=== PATIENT | male | born 1945 | race Caucasian/White ===

== ENCOUNTER → 2019-10-14 09:08 | Outpatient (CLI) | payer MEDICARE, OTHER, SELFPAY ==
[2019-10-14 23:37] LABS: COVID19 Sendout Not Detected (Not Detect)
== END ==
PROVIDERS: Family Provider Family Medicine; PCP Family Medicine; Visit Provider Physician Assistant
DX: Z01.812 Encounter for preprocedural laboratory examination (principal)
CPT/HCPCS: 87635

== ENCOUNTER 2019-10-17 11:42 | Outpatient (CLI) | payer MEDICARE, OTHER, SELFPAY ==
[2019-10-17] VITALS (9 sets, daily range): BP systolic 107–179; BP diastolic 66–84; PULSE 52–490; RESP 1–16; TEMP 36.7; O2SAT 9–100
--- NOTE | 2019-10-17 11:43 | DI.RAD.S_ITS ---
PROCEDURE: PAIN L/S TRANSFORAMINAL INJECT INDICATIONS: SPONDYLOSIS FINDINGS: Fluoroscopic spot filming was performed to verify placement of spinal needles at the left L1 to neural foramen level(s), as labeled on the films. Appropriate location(s) of the needle tip(s) was confirmed by injection of iodinated contrast. IMPRESSION: Successful needle tip localization adjacent to the left L1-L2 neural foramen for transforaminal epidural steroid injection. Dictated by: Slade Fry M.D. on 10/17/2019 at 16:20 Approved by: Slade Fry M.D. on 10/17/2019 at 16:21
[2019-10-17] MEDS: MIDAZOLAM 5 MG/5 ML VIAL IV (13:18)
[2019-10-17] MEDS: IOPAMIDOL 15 ML VIAL 3 ML INJ (13:22)
[2019-10-17] MEDS: BETAMETHASONE 30 MG/5 ML MDV 6 MG INJ (13:22)
[2019-10-17] MEDS: BUPIVACAINE 0.25% (PF) VIAL 2 ML INJ (13:22)
[2019-10-17] MEDS: DEXAMETHASONE 10 MG/ML VIAL 20 MG INJ (13:22)
[2019-10-17] MEDS: fentaNYL 100 MCG/2 ML INJ 50 MCG IV (13:24)
--- NOTE | 2019-10-17 13:41 | P.PCN_ITS ---
Date/Time/Diagnoses Date of procedure: 10/17/19 Time of procedure: 13:41 Pre-procedure diagnosis: 1. FORAMINAL STENOSIS WITH LE SYMPTOMS Post-procedure diagnosis: same Procedure Notes Procedure: 1. FLUOROSCOPICALLY GUIDED CONTRAST CONTROLLED TRANSFORAMINAL EPIDURAL STEROID INJECTION - LEFT L1/2 TFESI Indications: Harris is referred by for treatment of Foraminal Stenosis with left LE Symptoms Physician: Sony Spears Total Fluoroscopy time (seconds): 7 Total sedation minutes: 24 Complications: none Procedure in detail & Post-procedure care: FINDINGS Foraminal Nerve Root Compression secondary to disc disease and facet hypertrophy DESCRIPTION OF PROCEDURE Following review of allergy and review of potential side effects and complications, including, but not necessarily limited to, infection, allergic reaction, local tissue breakdown, stroke, temporary or permanent nerve injury, paralysis, and possible , the patient indicated that the patient understood and agreed to proceed. An informed consent document was signed by the patient, witnessed by a nurse, and placed in the patient's chart. Additionally, other treatment options including medications, modalities, and physical therapy were reviewed with the patient. After review of previous anaesthesic history and IV conscious sedation the patient was deemed safe to proceed with today?s procedure with IV conscious sedation as ASA class II designation. Safety time-out was performed to confirm patient ID, procedure to be performed and site of procedure. IV sedation was accomplished with a combination of 2mg of Versed and 50mcg of Fentanyl was administered by the RN after DO order, titrated to patient comfort during the course of the procedure while the patient remained responsive to all verbal comm ands In the prone position following sterile prep and drape of the lumbar region, the left L1/2 posterior neuroforamen was identified fluoroscopically. The skin was anesthetized via a 25-gauge 1.5-inch needle with 1% lidocaine solution. At this point, a 25-gauge 3.5-inch spinal needle was atraumatically introduced and advanced under fluoroscopic guidance through the posterior left L1/2 neurofor amen to approximately the anterior aspect of the canal. Depth was confirmed on lateral view. Following negative aspiration, injection of approximately 1.5cc of Isovue 200 under live fluoroscopy in the AP view confirmed excellent flow along the nerve root, into the epidural space without vascular or intrathecal uptake observed Radiological data, including multiple fluoroscopic views of the lumbosacral spine, reveal a spinal needle at the left L1/2 posterior neuroforamen. Subsequent views show flow of contrast material flowing superiorly and inferiorly along the nerve root confirming epidural flow. Subsequently, a test dose of 1.5cc of 1% lidocaine solution was administered and patient was observed for two minutes for signs or symptoms of complications, including abdominal pain, shortness of breath, bilateral upper or lower extremity weakness, nausea and vomiting, prior to steroid injection. At this point, a total of 2cc or 20mg of dexamethasone and 6mg of betamethasone was inj ected without incident. The patient tolerated the procedure well without signs or symptoms of complications prior to transfer to the recovery area continued monitoring without incident. The patient was then transferred to the recovery area where they were observed for an appropriate time after the injection. The patient reported a VAS score of 7 prior to the procedure and a post-procedure VAS of 0. POST OP INSTRUCTIONS The patient was provided a Pain Log to continue to record their response to the target-specific procedure prior to follow-up visit with their referring physician. Additionally, specific post-injection care instructions and a contact number to our office were provided if concerns arise regarding possible complications associated with the procedure are suspected.
--- NOTE | 2019-10-17 14:12 | PC.NURSE ---
1347:Pt returned to pre proc room, 1PA from wc to chair due to numbing medication administered during procedure, resumed monitoring by this RN
--- NOTE | 2019-10-17 16:17 | PC.NURSE ---
Pt tolerated procedure well. Versed and Fentanyl given my RN Rosa Maria, all other meds administered by Dr. Spears. VSS upon transfer to [facility] Hurtado in post procedure room.
== END 2019-10-17 14:51 | disposition home or self-care (01) ==
LOC: RAD 11:43
PROVIDERS: Family Provider Family Medicine; PCP Family Medicine; Referring Provider Family Medicine; Visit Provider Physical Medicine & Rehabilitation
DX: M48.061 Spinal stenosis, lumbar region without neurogenic claudication (principal); M51.16 Intervertebral disc disorders with radiculopathy, lumbar region
CPT/HCPCS: 64483; 99152; J0702; J1100; J2250; J3010

== ENCOUNTER → 2019-12-14 15:43 | Outpatient (CLI) | payer MEDICARE, OTHER, SELFPAY ==
[2019-12-17 15:47] LABS: COVID19 Sendout Not Detected (Not Detect)
== END ==
PROVIDERS: Family Provider Family Medicine; PCP Family Medicine; Visit Provider Physician Assistant
DX: Z11.59 Encounter for screening for other viral diseases (principal)
CPT/HCPCS: 87635

== ENCOUNTER 2019-12-17 12:30 | Outpatient (CLI) | payer MEDICARE, OTHER, SELFPAY ==
[2019-12-17] VITALS (8 sets, daily range): BP systolic 140–211; BP diastolic 75–89; PULSE 58–64; RESP 12–27; TEMP 36.6; O2SAT 97–100
--- NOTE | 2019-12-17 12:33 | DI.RAD.S_ITS ---
PROCEDURE: PAIN L/SI FACET INJ/BLK 1STL INDICATIONS: SPONDYLOSIS COMPARISON: None. FINDINGS: Fluoroscopic spot filming was performed to verify placement of spinal needles at the L1-L2, L2-L3, L3-L4 level(s), as labeled on the films. Appropriate location(s) of the needle tip(s) was confirmed by injection of iodinated contrast. Dictated by: Todd Moreno M.D. on 12/17/2019 at 16:33 Approved by: Todd Moreno M.D. on 12/17/2019 at 16:33
[2019-12-17 14:39] LABS: COVID19 -Nasal RAPID Negative (Negative)
[2019-12-17] MEDS: MIDAZOLAM 5 MG/5 ML VIAL IV (15:00)
[2019-12-17] MEDS: fentaNYL 100 MCG/2 ML INJ 50 MCG IV (15:00)
[2019-12-17] MEDS: BETAMETHASONE 30 MG/5 ML MDV 12 MG INJ (15:00)
[2019-12-17] MEDS: BUPIVACAINE 0.5% (PF) VIAL 5 ML INJ (15:05)
[2019-12-17] MEDS: IOPAMIDOL 15 ML VIAL 3 ML INJ (15:08)
--- NOTE | 2019-12-17 15:15 | P.PCN_ITS ---
Date/Time/Diagnoses Date of procedure: 12/17/19 Time of procedure: 15:15 Pre-procedure diagnosis: 1. FACET ARTHROPATHY, 2. AXIAL LBP, 3. MULTILEVEL DDD, Post-procedure diagnosis: same Procedure Notes Procedure: 1. FLUOROSCOPICALLY GUIDED CONTRAST CONTROLLED FACET JOINT INJECTIONS LEFT L2/3, L3/4 Indications: Harris is referred by is referred for treatment of Axial LBP Physician: Sony Spears Total Fluoroscopy time (seconds): 6 Total sedation minutes: 10 Complications: none Procedure in detail & Post-procedure care: FINDINGS Multilevel Facet Arthropathy with Clinically significant axial LBP DESCRIPTION OF PROCEDURE Fluoroscopically guided, contrast-controlled left L1/2, L2/3, L3/4 facet joint injections. Following review of allergy and review of potential side effects and complications, including, but not necessarily limited to, infection, allergic reaction, local tissue breakdown, stroke, temporary or permanent nerve injury, paralysis, and possible , the patient indicated that the patient understood and agreed to proceed. An informed consent document was signed by the patient, witnessed by a nurse, and placed in the patient's chart. Additionally, other treatment options including medications, modalities, and physical therapy were reviewed with the patient. After review of previous anaesthesic history and IV conscious sedation the pa tient was deemed safe to proceed with today?s procedure with IV conscious sedation as ASA class II designation. Safety time-out was performed to confirm patient ID, procedure to be performed and site of procedure. IV sedation was accomplished with a combination of 2mg of Versed and 50mcg of Fentanyl administered by the RN after DO order, titrated to patient comfort during the course of the procedure while the patient remained responsive to all verbal commands In the prone position, following sterile prep and drape of the lumbar region, the posterior aspect of the left L2/3, L3/4 facet joints were identified fluoroscopically. The skin was anesthetized via a 25-gauge 1.5-inch needle with 1% lidocaine solution into the corresponding facet joints. At this point, a 22- gauge 3.5-inch spinal needle was atraumatically introduced and advanced under fluoroscopic guidance into the corresponding facet joints. Following negative aspiration, injections of approximately 0.2-cc of Isovue 200 confirmed interarticular placement without vascular uptake. Radiological data, including multiple fluoroscopic views of the lumbosacral spine, reveal a spinal needle at the left L2/3, L3/4 facet joints. Subsequent views show flow of contrast material both superiorly and inferiorly within the joint space without vascular or intrathecal uptake. At this point, a total of 0.5 cc including a mixture of 0.25cc Marcaine and 0.25cc betamethasone was injected without complication into each of the corresponding facet joints. The patient tolerated the procedure well without signs or symptoms of compl ications prior to transfer to the recovery area continued monitoring without incident. The patient was then transferred to the recovery area where they were observed for an appropriate period of time after the injection. The patient reported a VAS score of 7 prior to the procedure and a post-procedure VAS of 0. POST OP INSTRUCTIONS The patient was provided a Pain Log to continue to record their response to the target-specific procedure prior to follow-up visit with their referring physician. Additionally, specific post-injection care instructions and a contact number to our office were provided if concerns arise regarding possible complications associated with the procedure are suspected.
== END 2019-12-17 15:59 | disposition home or self-care (01) ==
PROVIDERS: Family Provider Family Medicine; PCP Family Medicine; Referring Provider Physical Medicine & Rehabilitation; Visit Provider Physical Medicine & Rehabilitation
DX: M47.816 Spondylosis without myelopathy or radiculopathy, lumbar region (principal); M54.5 Low back pain; M51.36 Other intervertebral disc degeneration, lumbar region; Z11.59 Encounter for screening for other viral diseases
CPT/HCPCS: 64493; 64494; 64495; 87635; 99152; J0702; J2250; J3010

== ENCOUNTER → 2020-01-18 14:46 | Outpatient (CLI) | payer MEDICARE, OTHER, SELFPAY ==
[2020-01-20 07:53] LABS: COVID19 Sendout Not Detected (Not Detect)
== END ==
PROVIDERS: Family Provider Family Medicine; PCP Family Medicine; Visit Provider Physician Assistant
DX: Z01.812 Encounter for preprocedural laboratory examination (principal)
CPT/HCPCS: 87635

== ENCOUNTER 2020-01-21 11:40 | Outpatient (CLI) | payer MEDICARE, OTHER, SELFPAY ==
[2020-01-21] VITALS (8 sets, daily range): BP systolic 133–176; BP diastolic 67–81; PULSE 52–59; RESP 15–19; O2SAT 95–98
--- NOTE | 2020-01-21 11:41 | DI.RAD.S_ITS ---
PROCEDURE: PAIN L/SI FACET INJ/BLK 1STL INDICATIONS: SPONDYLOSIS COMPARISON: [facility], , PAIN L/SI FACET INJ/BLK 1STL, 12/17/2019, 15:05. FINDINGS: Fluoroscopic spot filming was performed to verify placement of spinal needles at the left L1, L2, L3, L4 level(s). Appropriate location(s) of the needle tip(s) was confirmed by injection of iodinated contrast. IMPRESSION: Intraoperative fluoroscopic guidance. Dictated by: David Santillan M.D. on 01/21/2020 at 17:36 Approved by: David Santillan M.D. on 01/21/2020 at 17:37
[2020-01-21] MEDS: MIDAZOLAM 5 MG/5 ML VIAL IV (13:20)
[2020-01-21] MEDS: fentaNYL 100 MCG/2 ML INJ 50 MCG IV (13:20)
[2020-01-21] MEDS: IOPAMIDOL 15 ML VIAL 3 ML INJ (13:22)
[2020-01-21] MEDS: LIDOCAINE 1% 20 ML 10 ML INJ (13:22)
[2020-01-21] MEDS: BUPIVACAINE 0.5% (PF) VIAL 5 ML INJ (13:22)
--- NOTE | 2020-01-21 13:37 | PM.PROC.IR.1 ---
Date/Time/Diagnoses Date of procedure: 01/21/20 Time of procedure: 13:37 Pre-procedure diagnosis: 1. FACET ARTHROPATHY Post-procedure diagnosis: same Procedure Notes Procedure: 1. Left L1, L2, L3 and L4 MB BLOCKS Indications: Harris is referred by Dr. Thomas for treatment of Left Axial LBP. Physician: Sony Spears Total Fluoroscopy time (seconds): 8 Total sedation minutes: 9 Complications: none Procedure in detail & Post-procedure care: DESCRIPTION OF PROCEDURE Fluoroscopically guided, contrast-controlled left L1, L2, L3 and L4 medial branch blocks with 0.5cc of 0.5% Marcaine. Following review of allergy and review of potential side effects and complications, including, but not necessarily limited to, infection, allergic reaction, local tissue breakdown, nerve injury, paralysis, stroke and possible , the patient indicated that the patient understood and agreed to proceed. An informed consent document was signed by the patient, witnessed by a nurse, and placed in the patient's chart. After review of previous anaesthesic history and IV conscious sedation the patient was deemed safe to proceed with today?s procedure with IV conscious sedation as ASA class II designation. Safety time-out was performed to confirm patient ID, procedure to be performed and site of procedure. IV sedation was accomplished with a combination of 2mg of Versed and 50mcg of Fentanyl was administered by the RN after DO order, titrated to patient comfort during the course of the procedure while the patient remained responsive to all verbal commands In the prone position, following sterile prep and drape of the lumbar region, the left L1, L2, L3 and L4 anatomical location of the medial branch of the dorsal ramus was identified fluoroscopically. Subsequently an anesthetic skin wheal using 1% lidocaine solution was initiated at each of the anatomical spots. Subsequently then a 22-gauge 3.5-inch spinal needle was atraumatically introduced and advanced under fluoroscopic guidance at each of the corresponding sites at the left L1, L2, L3 and L4 MB. After negative aspiration, 0.2cc of Isovue 200 was injected, confirming placement without vascular or intrathecal uptake. Subsequently then 0.5cc of 0.5% Marcaine solution was injected at each of the corresponding sites at the left L2, L3 and L4 medial branch locations. The patient tolerated the procedure well without signs or symptoms of complications. The procedure tolerated the procedure well without signs or symptoms of complications prior to transfer to the recovery area continued monitoring without incident. Post-procedure, the patient was monitored initiating provocative activities to measure the amount of relief from block of the facetogenic pain. The patient reported a VAS of 6 prior to the procedure and a post-procedure VAS of 1. It has been a pleasure to assist in the diagnostic and therapeutic care of your patient. POST OP INSTRUCTIONS The patient was provided with a Pain Log to complete over the next several hours and subsequent days prior to the patient's follow up with the ordering physician. If the patient has house carpenter relief to the solution applied, then they may be a candidate for medial branch rhizotomy. The patient is aware, was provided, once again, with a Pain Log and will follow up with the referring physician for review and clinical correlation.
== END 2020-01-21 14:00 | disposition home or self-care (01) ==
PROVIDERS: Family Provider Family Medicine; PCP Family Medicine; Referring Provider Family Medicine; Visit Provider Physical Medicine & Rehabilitation
DX: M47.816 Spondylosis without myelopathy or radiculopathy, lumbar region (principal)
CPT/HCPCS: 64493; 64494; 64495; J2250; J3010

== ENCOUNTER 2020-03-12 09:03 | Outpatient (CLI) | payer MEDICARE, OTHER, SELFPAY ==
[2020-03-12] VITALS (11 sets, daily range): BP systolic 143–202; BP diastolic 72–95; PULSE 53–60; RESP 11–23; TEMP 36.2; O2SAT 98–100
--- NOTE | 2020-03-12 09:05 | DI.RAD.S_ITS ---
PROCEDURE: PAIN L/S MED/LAT N RFA BILAT INDICATIONS: SPONDYLOSIS COMPARISON: [facility], XA, PAIN L/SI FACET INJ/BLK 1STL, 01/21/2020, 13:22. FINDINGS: Fluoroscopic spot filming was performed to verify placement of spinal needles on the left at the L1, L2, L3, and L4 level(s), as labeled on the films. IMPRESSION: Intraprocedural examination within normal limits. Dictated by: Bernardo Parkinson M.D. on 03/12/2020 at 11:05 Approved by: Bernardo Parkinson M.D. on 03/12/2020 at 11:05
[2020-03-12] MEDS: fentaNYL 100 MCG/2 ML INJ 50 MCG IV (10:51)
[2020-03-12] MEDS: MIDAZOLAM 5 MG/5 ML VIAL IV (10:54)
[2020-03-12] MEDS: BUPIVACAINE 0.5% (PF) VIAL 5 ML INJ (10:58)
[2020-03-12] MEDS: LIDOCAINE 1% 20 ML INJ (10:58)
--- NOTE | 2020-03-12 11:25 | P.PCN_ITS ---
Date/Time/Diagnoses Date of procedure: 03/12/20 Time of procedure: 11:25 Pre-procedure diagnosis: 1. RECALCITRANT FACET ARTHROPATHY Post-procedure diagnosis: same Procedure Notes Procedure: 1. LEFT L1, L2, L3 AND L4 MEDIAL BRANCH RADIOFREQUENCY NEUROTOMY Indications: Harris is referred by Dr. Thomas for treatment of facet arthropathy. Physician: Sony Spears Total Fluoroscopy time (seconds): 15 Total sedation minutes: 33 Complications: none Procedure in detail & Post-procedure care: DESCRIPTION OF PROCEDURE Left L2, L3 and L4 medial branch radio-frequency neurotomy The patient is well known to this clinic having undergone previous facet injections with good but temporary relief. The patient has experienced appropriate, concordant relief with previous facet and median branch blocks but the patient's pain has been recalcitrant to further conservative measures. Therefore, based upon the patient's relief and persistent symptoms, the patient is considered an appropriate candidate for facet rhizotomy. All of the patient's questions regarding the risks versus benefits of the procedure, including, but not limited to, bleeding, infection, temporary as well as lasting nerve injury, paralysis, stroke, and , as well treatment alternatives were answered to satisfaction. After obtaining informed consent, denial of pertinent drug allergies, as well as being made aware of the potential risks of bleeding, infection, spinal cord trauma, paralysis, temporary and permanent nerve damage, seizure, stroke, and possible , the patient was brought to the fluoroscopy suite and positioned prone on the fluoroscopy table. The lumbar region was prepped with Betadine and covered with a fenestrated drape in the usual sterile fashion. Appropriate monitors applied including pulse oximeter, pulse, and blood pressure for regular monitoring throughout the procedure. After review of previous anaesthesic history and IV conscious sedation the patient was deemed safe to proceed with today?s procedure with IV conscious sedation as ASA class II designation. Safety time-out was performed to confirm patient ID, procedure to be performed and site of procedure. IV sedation was accomplished with a combination of 3mg of Versed and 50mcg of Fentanyl administered by the RN after DO order, titrated to patient comfort during the course of the procedure while the patient remained responsive to all verbal commands. After local infiltration using 1% lidocaine, under fluoroscopic guidance, a 10- cm RF insulated needle with a 10-mm active tip was positioned parallel to the junction of the left the superior articulating process where the L1 medial branch resides. Needle placement was confirmed with sensory stimulation at 50 Hz, with motor stimulation of .5v on the left which produced local stimulation without radicular component. The stimulation was then increased to 2v with, once again, only local multifidus stimulation without radicular component. This was then followed by two discreet lesions performed at 80 degrees Celsius for 90 seconds each. The needle was then removed and the identical procedure was performed along the length of the left L2 medial branch with motor stimulation at .7v on the leftThe needle was then removed and the identical procedure was performed along the length of the left L3 medial branch with motor stimulation at .7v on the left. The identical procedure was once again performed along the length of the left L4 and medial branch with motor stimulation of .5v on the right. The patient tolerated the procedure well without signs or symptoms of complications prior to transfer to the recovery area continued monitoring without incident. The patient was then transferred to the recovery area where they were observed for an appropriate period of time after the injection. The patient reported a VAS score of 6 prior to the procedure and a post-procedure VAS of 0. POST OP INSTRUCTIONS The patient was provided a Pain Log to continue to record the patient's response to the target-specific procedure prior to the patient's follow-up visit with the referring physician. Additionally, specific post-injection care instructions and a contact number to our office were provided if concerns arise regarding possible complications associated with the procedure are suspected.
--- NOTE | 2020-03-12 11:37 | PC.NURSE ---
[facility] patient had negative covid test
== END 2020-03-12 11:57 | disposition home or self-care (01) ==
LOC: RAD 09:03
PROVIDERS: Family Provider Family Medicine; PCP Family Medicine; Referring Provider Physical Medicine & Rehabilitation; Visit Provider Physical Medicine & Rehabilitation
DX: M47.816 Spondylosis without myelopathy or radiculopathy, lumbar region (principal)
CPT/HCPCS: 64635; 64636; 99152; 99153; J2250; J3010

== ENCOUNTER → 2020-04-08 13:25 | Outpatient (CLI) | payer MEDICARE, OTHER, SELFPAY ==
--- NOTE | 2020-04-08 | DI.CT.S_ITS ---
PROCEDURE: CT ABDOMEN W CON INDICATIONS: Periumbilical pain TECHNIQUE: After the administration of oral and intravenous contrast, 5 mm thick sections acquired from the diaphragms to the iliac crests. 5 mm thick coronal and sagittal reformats were acquired. For radiation dose reduction, the following was used: automated exposure control, adjustment of mA and/or kV according to patient size. COMPARISON: None. FINDINGS: Image quality: Hepatic steatosis Lung bases: Lung bases are clear. Heart size is normal. Coronary artery calcifications are present. Hepatic steatosis. The gallbladder is grossly unremarkable. Biliary system is non dilated. Pancreas enhances normally. Spleen is normal in size and enhancement. No adrenal nodules. Bilateral renal cortical scarring and atrophy. No hydronephrosis. Peritoneum and bowel: Contrast enhanced bowel loops appear normal in caliber. No free fluid or air. Moderate stool . The appendix is not seen on the study. Nodes and vessels: No retroperitoneal or mesenteric adenopathy by size criteria. Aorta and inferior vena cava are normal in size. Bones: No vertebral body compression fracture. Spondylytic changes and facet arthropathy. Scoliosis noted. Miscellaneous: No ventral hernias. IMPRESSION: Overall, no acute abnormality to explain periumbilical pain, although if there is clinical concern for acute appendicitis, recommend pelvis CT or ultrasound. Hepatic steatosis Coronary artery disease Dictated by: Todd Moreno M.D. on 04/08/2020 at 16:59 Approved by: Todd Moreno M.D. on 04/08/2020 at 17:04
== END ==
PROVIDERS: Family Provider Family Medicine; PCP Family Medicine; Referring Provider Family Medicine; Visit Provider Family Medicine
DX: R10.33 Periumbilical pain (principal); I25.10 Atherosclerotic heart disease of native coronary artery without angina pectoris; K76.0 Fatty (change of) liver, not elsewhere classified
CPT/HCPCS: 74160; Q9967

== ENCOUNTER 2020-06-25 07:46 | Outpatient (CLI) | payer MEDICARE, OTHER, SELFPAY ==
[2020-06-25] VITALS (9 sets, daily range): BP systolic 132–167; BP diastolic 64–81; PULSE 50–58; RESP 16–23; TEMP 36.7–37; O2SAT 98–100
--- NOTE | 2020-06-25 07:47 | DI.RAD.S_ITS ---
PROCEDURE: PAIN L/SI FACET INJ/BLK 1STL INDICATIONS: SPONDYLOSIS COMPARISON: Outside Facility, RG, XR L-SPINE 2-3V, 06/01/2020, 11:03. FINDINGS: Fluoroscopic spot filming was performed to verify placement of spinal needles at the L4-L5 and L5-S1 level(s), as labeled on the films. Appropriate location(s) of the needle tip(s) was confirmed by injection of iodinated contrast. IMPRESSION: Fluoroscopy for pain management. Dictated by: Jimbo Quesada M.D. on 06/25/2020 at 9:35 Approved by: Jimbo Quesada M.D. on 06/25/2020 at 9:36
--- NOTE | 2020-06-25 08:58 | P.PCN_ITS ---
Date/Time/Diagnoses Date of procedure: 06/25/20 Time of procedure: 08:58 Pre-procedure diagnosis: 1. FACET ARTHROPATHY, 2. AXIAL LBP, 3. MULTILEVEL DDD Post-procedure diagnosis: same Procedure Notes Procedure: 1. FLUOROSCOPICALLY GUIDED CONTRAST CONTROLLED FACET JOINT INJECTIONS LEFT L4/5, L5/S1 Indications: Harris is referred by Dr. Thomas for treatment of Axial LBP Physician: Sony Spears Total Fluoroscopy time (seconds): 4 Total sedation minutes: 7 Complications: none Procedure in detail & Post-procedure care: FINDINGS Multilevel Facet Arthropathy with Clinically significant axial LBP DESCRIPTION OF PROCEDURE Fluoroscopically guided, contrast-controlled left L4/5, L5/S1 facet joint injections. Following review of allergy and review of potential side effects and complications, including, but not necessarily limited to, infection, allergic reaction, local tissue breakdown, stroke, temporary or permanent nerve injury, paralysis, and possible , the patient indicated that the patient understood and agreed to proceed. An informed consent document was signed by the patient, witnessed by a nurse, and placed in the patient's chart. Additionally, other tr eatment options including medications, modalities, and physical therapy were reviewed with the patient. After review of previous anaesthesic history and IV conscious sedation the patient was deemed safe to proceed with today?s procedure with IV conscious sedation as ASA class II designation. Safety time-out was performed to confirm patient ID, procedure to be performed and site of procedure. IV sedation was accomplished with a combination of 2mg of Versed was administered by the RN after DO order, titrated to patient comfort during the course of the procedure while the patient remained responsive to all verbal commands. In the prone position, following sterile prep and drape of the lumbar region, the posterior aspect of the left L4/5, L5/S1 facet joints were identified fluoroscopically. The skin was anesthetized via a 25-gauge 1.5-inch needle with 1% lidocaine solution into the corresponding facet joints. At this point, a 22- gauge 3.5-inch spinal needle was atraumatically introduced and advanced under fluoroscopic guidance into the corresponding facet joints. Following negative aspiration, injections of approximately 0.2-cc of Isovue 200 confirmed interarticular placement without vascular uptake. Radiological data, including multiple fluoroscopic views of the lumbosacral spine, reveal a spinal needle at the left L4/5, L5/S1 facet joints. Subsequent views show flow of contrast material both superiorly and inferiorly within the joint space without vascular or intrathecal uptake. At this point, a total of 0.5cc including a mixture of 0.25cc Marcaine and 0.25cc betamethasone was injected without complication into each of the corresponding facet joints. The procedure tolerated the procedure well without signs or symptoms of complications prior to transfer to the recovery area continued monitoring without incident. The patient was then transferred to the recovery area where they were observed for an appropriate period of time after the injection. The patient reported a VAS score of 7 prior to the procedure and a post-procedure VAS of 0. POST OP INSTRUCTIONS The patient was provided a Pain Log to continue to record their response to the target-specific procedure prior to follow-up visit with their referring physician. Additionally, specific post-injection care instructions and a contact number to our office were provided if concerns arise regarding possible complications associated with the procedure are suspected.
== END 2020-06-25 09:20 | disposition home or self-care (01) ==
LOC: RAD 07:47
PROVIDERS: Family Provider Family Medicine; PCP Family Medicine; Referring Provider Family Medicine; Visit Provider Physical Medicine & Rehabilitation
DX: M47.816 Spondylosis without myelopathy or radiculopathy, lumbar region (principal); M47.817 Spondylosis without myelopathy or radiculopathy, lumbosacral region; M51.36 Other intervertebral disc degeneration, lumbar region; M51.37 Other intervertebral disc degeneration, lumbosacral region; M54.5 Low back pain
CPT/HCPCS: 64493; 64494; J0702; J2250; J3010

== ENCOUNTER → 2020-07-06 07:47 | Outpatient (CLI) | payer MEDICARE, OTHER, SELFPAY ==
--- NOTE | 2020-07-06 | DI.ECHO.S_ITS ---
[facility] +[facility]+ : : [address] : [place] [address] : : : : [id number] : : : : Phone: [phone]+ Echocardiogram Report + + :Name: THEODORE MATHEWS Study Date: 07/06/2020 Height: 70 in : :[facility] ReadingLocation: Weight: 165 lb : : Gender: Male BSA: 1.9 m2 : :: 1945 Age: 75 yrs BP: 131/72 mmHg: :Reason For Study: ORTHOSTATIC HYPOTENSION, TIA : :Ordering Physician: Alec, : :Murray Badillo Performed By: Tracy Fernandez : :Referring: MURRAY NUNES M.D : + + Interpretation Summary Left ventricular systolic function remains normal with an estimated ejection fraction of 60 to 65% without any focal wall motion abnormality and appears slightly more dynamic compared to the previous study. Left ventricular size and wall thickness remain normal with probable normal diastolic function and normal filling pressures. The right ventricle is at the upper limits of normal in size with normal systolic function but appears unchanged from the previous study. Right ventricular systolic pressure cannot be estimated but CVP is likely around 3 mmHg. Both atria are mildly enlarged and measure slightly larger compared to the previous study. There is mild pulmonic valve regurgitation that is likely unchanged from the previous study and no other significant valvular abnormality. The ascending aorta is borderline enlarged but unchanged from the previous exam. Procedure: A two-dimensional transthoracic echocardiogram with color flow and Doppler was performed. The study quality was technically adequate. Comparison is made with the echocardiogram of 08/27/2014. The patient was in sinus bradycardia with heart rates between 59-64 bpm during the exam. Left Ventricle: The left ventricle appears normal in size, wall thickness, and systolic function without any focal wall motion abnormalities. The ejection fraction is estimated to be 60-65%. This is slightly more dynamic compared to the previous study. Diastolic parameters suggest probable normal left ventricular diastolic function and normal filling pressures. This is unchanged compared to the previous study. Right Ventricle: The right ventricle is at the upper limits of normal in size. The right ventricular systolic function is normal. This is unchanged compared to the previous study. Atria: Both atria are mildly dilated. This is slightly larger compared to the previous study. There is no Doppler evidence for an interatrial shunt. Mitral Valve: The mitral valve is normal in structure and function. There is no mitral regurgitation noted. Aortic Valve: The aortic valve is trileaflet. The aortic valve opens well. There is no aortic valve stenosis. No aortic regurgitation is present. Tricuspid Valve: The tricuspid valve is normal in structure and function. There is trace tricuspid regurgitation. Pulmonary artery pressures cannot be estimated because of the lack of a measurable TR jet velocity but the IVC suggests a CVP of around 3 mmHg. Pulmonic Valve: The pulmonic valve leaflets are thin and pliable; valve motion is normal. There is mild pulmonic regurgitation. This is unchanged compared to the previous study. There is no other significant valvular heart disease. Great Vessels: The aortic root is normal size. The ascending aorta is at the upper limits of normal in size. This is unchanged compared to the previous study. The IVC is of normal diameter and collapses greater than 50% with a sniff. This suggests a low right atrial pressure of 3 mm Hg. Pericardium/ Pleura There is no pericardial effusion. There is no pleural effusion. MMode/2D Measurements & Calculations LVIDd: 4.4 cm LVOT diam: 2.0 cm LVIDs: 2.8 cm Ao root diam: 3.5 cm FS: 36.2 % asc Aorta Diam: 3.6 cm EPSS: 0.40 cm IVSd: 1.1 cm LVPWd: 1.1 cm LV mcmullen. diameter/BSA (cm/m^2): 2.3 LV sys. diameter/BSA (cm/m^2): 1.5 LA A2 area: 24.8 cm2 RA long axis: 6.1 cm LA A4 area: 21.0 cm2 RA area: 20.7 cm2 LA length (vol): 6.0 cm RA vol: 59.9 ml LA vol: 73.8 ml RA : 31.1 ml/m2 LA vol index: 38.4 ml/m2 IVC diam: 1.6 cm RVD1 (basal): 4.0 cm TAPSE: 2.4 cm Doppler Measurements & Calculations Ao V2 max: 146.8 cm/sec LVOT Max Keron: 125.8 cm/sec Ao V2 mean: 100.5 cm/sec LV V1 max P.3 mmHg Ao max P.6 mmHg LV V1 VTI: 27.1 cm Ao mean P.5 mmHg NILDA(I,D): 2.6 cm2 Ao V2 VTI: 31.0 cm NILDA(V,D): 2.6 cm2 sev ratio: 0.87 NILDA indexed to BSA (cm^2/m^2): 1.4 MV E max keron: 80.0 cm/sec PA V2 max: 110.3 cm/sec MV A max keron: 65.1 cm/sec PA V2 mean: 74.3 cm/sec MV E/A: 1.2 PA mean P.6 mmHg Med Peak E' Keron: 8.2 cm/sec PA pr(Accel): 24.2 mmHg E/E' med: 9.8 Lat Peak E' Keron: 10.6 cm/sec E/E' lat: 7.5 E/e' average: 8.7 MV dec time: 0.20 sec SV(LVOT): 81.9 ml Reading Physician:01:05 PM
--- NOTE | 2020-07-06 | DI.US.S_ITS ---
PROCEDURE: US CAROTID DOPPLER BI INDICATIONS: TIA; ORTHOSTATIC HTN TECHNIQUE: Color and pulse Doppler interrogation was performed of both carotid systems, with image documentation and velocity measurements. COMPARISON: [facility], , CAROTID ARTERY DOPPLER BIL, 12/24/2014, 9:21. FINDINGS: Stenosis calculations are based on SRU (Society of Radiologists in Ultrasound) criteria. The flow velocities and the arterial waveforms are normal within both carotid arterial systems. Atherosclerotic plaque is seen on both sides. The estimated degree of internal carotid artery stenosis is less than 50%. Antegrade flow is confirmed within both vertebral arteries. IMPRESSION: No hemodynamically significant stenosis is seen. No significant change from the prior. Atherosclerotic plaque is noted bilaterally. Dictated by: Bernardo Parkinson M.D. on 07/06/2020 at 14:00 Approved by: Bernardo Parkinson M.D. on 07/06/2020 at 14:01
[2020-07-06 09:09] LABS: Alanine Aminotransferase 20 IU/L (<50); Albumin 4.5 g/dL (3.5-5.0); Albumin Globulin Ratio 1.8 (1.0-2.8); Alkaline Phosphatase 63 U/L (38-126); Aspartate Aminotransferase 30 IU/L (17-59); BUN Creatinine Ratio 25.6 (6-22); Bilirubin Total 0.9 mg/dL (0.2-1.3); Blood Urea Nitrogen 22 mg/dL (9-20); Calcium 9.8 mg/dL (8.4-10.2); Carbon Dioxide 27 mmol/L (22-32); Chloride 104 mmol/L (98-107); Estimated Glomerular Filt Rate > 60.0 mL/min (>60); Globulin 2.5 g/dL (1.7-4.1); Glucose 88 mg/dL (80-110); HEMOLYSIS < 15 (0-50); Potassium 4.7 mmol/L (3.4-5.1); Sodium 140 mmol/L (137-145)
[2020-07-08 11:06] LABS: LDL Particle SEE SEPARATE REPORTS
[2020-07-08 12:39] LABS: Cholesterol, Total 174 mg/dL (100-199); HDL-Cholesterol 80 mg/dL (>39); HDL-Particle (Total) 56.1 umol/L (>=30.5); LDL Size 19.8 nm (>20.5); LDL-Cholsterol 72 mg/dL (0-99); LP-IR Score 62 (<=45); Small LDL- Particle 564 nmol/L (<=527); Triglycerides 130 mg/dL (0-149)
== END ==
PROVIDERS: Family Provider Family Medicine; PCP Family Medicine; Referring Provider Specialist; Visit Provider Physician Assistant Medical
DX: G45.9 Transient cerebral ischemic attack, unspecified (principal); I37.1 Nonrheumatic pulmonary valve insufficiency; I95.1 Orthostatic hypotension; E78.5 Hyperlipidemia, unspecified
CPT/HCPCS: 36415; 80053; 80061; 83704; 93306; 93880

== ENCOUNTER 2020-09-01 07:33 | Outpatient (CLI) | payer MEDICARE, OTHER, SELFPAY ==
[2020-09-01] VITALS (8 sets, daily range): BP systolic 157–193; BP diastolic 76–89; PULSE 53–56; RESP 14–18; TEMP 35.8; O2SAT 98–100
--- NOTE | 2020-09-01 07:36 | DI.RAD.S_ITS ---
PROCEDURE: PAIN L/S MED/LAT N RFA INDICATIONS: SPONDYLOSIS COMPARISON: [facility], , PAIN L/SI FACET INJ/BLK 1STL, 06/25/2020, 8:52. FINDINGS: Fluoroscopic spot filming was performed to verify placement of spinal needles at the L4, L5, and S1 level(s), as labeled on the films. IMPRESSION: Intraprocedural examination within normal limits. Dictated by: Bernardo Parkinson M.D. on 09/01/2020 at 8:41 Approved by: Bernardo Parkinson M.D. on 09/01/2020 at 8:41
[2020-09-01] MEDS: MIDAZOLAM 5 MG/5 ML VIAL IV (08:26)
[2020-09-01] MEDS: fentaNYL 100 MCG/2 ML INJ 50 MCG IV (08:26)
[2020-09-01] MEDS: LIDOCAINE 1% 20 ML INJ (08:30)
[2020-09-01] MEDS: BUPIVACAINE 0.5% (PF) VIAL 5 ML INJ (08:30)
--- NOTE | 2020-09-01 08:49 | P.PCN_ITS ---
Date/Time/Diagnoses Date of procedure: 09/01/20 Time of procedure: 08:49 Pre-procedure diagnosis: 1. RECALCITRANT FACET ARTHROPATHY Post-procedure diagnosis: same Procedure Notes Procedure: 1. LEFT L4 AND L5 MEDIAL BRANCH RADIOFREQUENCY NEUROTOMY AND LEFT S1 DORSAL RAMUS RADIOFREQUENCY NEUROTOMY, Indications: Harris is referred by Dr. Thomas for treatment of facet arthropathy. Physician: Sony Spears Total Fluoroscopy time (seconds): 8 Total sedation minutes: 17 Complications: none Procedure in detail & Post-procedure care: DESCRIPTION OF PROCEDURE Left L4 and L5 medial branch radiofrequency neurotomy and left S1 dorsal ramus branch radiofrequency neurotomy under fluoroscopy with conscious sedation. The patient is well known to this clinic having undergone previous facet injections with good but temporary relief. The patient has experienced appropriate, concordant relief with previous facet and median branch blocks but the patient's pain has been recalcitrant to further conservative measures. Therefore, based upon the patient's relief and persistent symptoms, the patient is considered an appropriate candidate for facet rhizotomy. All of the patient's questions regarding the risks versus benefits of the procedure, including, but not limited to, bleeding, infection, temporary as well as lasting nerve injury, paralysis, stroke, and , as well treatment alternatives were answered to satisfaction. After obtaining informed consent, denial of pertinent drug allergies, as well as being made aware of the potential risks of bleeding, infection, spinal cord trauma, paralysis, temporary and permanent nerve damage, seizure, stroke, and possible , the patient was brought to the fluoroscopy suite and positioned prone on the fluoroscopy table. The lumbar region was prepped with Betadine and covered with a fenestrated drape in the usual sterile fashion. Appropriate monitors applied including pulse oximeter, pulse, and blood pressure for regular monitoring throughout the procedure. IV sedation was accomplished with a combination of 2mg of Versed and 50mcg of Fentanyl titrated to patient comfort during the course of the procedure while the patient remained responsive to all verbal commands. After local infiltration using 1% lidocaine, under fluoroscopic guidance, a 10- cm RF insulated needle with a 10-mm active tip was positioned parallel to the junction of the left sacral ala and the superior articulating process where the S1 dorsal ramus resides. Needle placement was confirmed with sensory stimulation at 50 Hz, with motor stimulation of .5v on the left which produced local stimulation without radicular component. The stimulation was then increased to 2v with, once again, only local multifidus stimulation without radicular component. This was then followed by two discreet lesions performed at 80 degrees Celsius for 90 seconds each. The needle was then removed and the identical procedure was performed along the length of the left L5 medial branch with motor stimulation at .7v on the left. The identical procedure was once again performed along the length of the left L4 medial branch with motor stimulation of .5v on the left. The patient tolerated the procedure well without signs or symptoms of complications prior to transfer to the recovery area continued monitoring without incident. The patient was then transferred to the recovery area where they were observed for an appropriate period of time after the injection. The patient was then transferred to the recovery area where they were observed for an appropriate period of time after the injection. The patient reported a VAS score of 7 prior to the procedure and a post- procedure VAS of 0. POST OP INSTRUCTIONS The patient was provided a Pain Log to continue to record the patient's response to the target-specific procedure prior to the patient's follow-up visit with the referring physician. Additionally, specific post-injection care instructions and a contact number to our office were provided if concerns arise regarding possible complications associated with the procedure are suspected.
--- NOTE | 2020-09-01 09:19 | PC.NURSE ---
Pt unable to stand or ambulate safely for discharge. [place] Attempted to stand with assistx2 at 0854, 0903, 0910, 0920. Will have to reschedule taxi and miss scheduled ferry, have called for patient.
--- NOTE | 2020-09-01 10:05 | PC.NURSE ---
Pt unabkle to ambulate safely with two person assist. Remains in observation, reclined in chair. Sipping water, tolerating well
--- NOTE | 2020-09-01 11:18 | PC.NURSE ---
Patient unable to ambulate steadily with good balance until 1115. Attempted twice more with RN and again with Dr Spears. 11:15- pt able to ambulate without assistance feels balanced, no wobbling. D/C ok by Dr Spears at this time. Pt will be taking Louise Moura to [facility] aware no ride. 0/10 pain upon discharge
== END 2020-09-01 11:15 | disposition home or self-care (01) ==
LOC: RAD 07:34
PROVIDERS: Family Provider Family Medicine; PCP Family Medicine; Referring Provider Physical Medicine & Rehabilitation; Visit Provider Physical Medicine & Rehabilitation
DX: M47.816 Spondylosis without myelopathy or radiculopathy, lumbar region (principal); M47.817 Spondylosis without myelopathy or radiculopathy, lumbosacral region
CPT/HCPCS: 64635; 64636; 99152; J2250; J3010

== ENCOUNTER → 2021-06-09 07:46 | Outpatient (CLI) | payer MEDICARE, OTHER, SELFPAY ==
[2021-06-09 08:36] LABS: Alanine Aminotransferase 20 IU/L (<50); Albumin 4.5 g/dL (3.5-5.0); Albumin Globulin Ratio 1.7 (1.0-2.8); Alkaline Phosphatase 51 U/L (38-126); Aspartate Aminotransferase 33 IU/L (17-59); BUN Creatinine Ratio 17.4 (6-22); Bilirubin Total 1.2 mg/dL (0.2-1.3); Blood Urea Nitrogen 19 mg/dL (9-20); Calcium 9.6 mg/dL (8.4-10.2); Carbon Dioxide 30 mmol/L (22-32); Chloride 102 mmol/L (98-107); Estimated Glomerular Filt Rate > 60.0 mL/min (>60); Globulin 2.7 g/dL (1.7-4.1); Glucose 90 mg/dL (80-110); HEMOLYSIS < 15 (0-50); Potassium 4.4 mmol/L (3.4-5.1); Sodium 136 mmol/L (137-145); Total Protein 7.2 g/dL (6.3-8.2)
[2021-06-11 10:21] LABS: Cholesterol, Total 119 mg/dL (100-199); HDL-Cholesterol 65 mg/dL (>39); HDL-Particle (Total) 44.6 umol/L (>=30.5); LDL Particle 469 nmol/L (<1000); LDL Size 20.4 nm (>20.5); LDL-Cholsterol 39 mg/dL (0-99); LP-IR Score 42 (<=45); Small LDL- Particle 285 nmol/L (<=527); Triglycerides 72 mg/dL (0-149)
== END ==
PROVIDERS: Family Provider Family Medicine; PCP Family Medicine; Referring Provider Specialist; Visit Provider Specialist
DX: I10 Essential (primary) hypertension (principal); E78.5 Hyperlipidemia, unspecified
CPT/HCPCS: 36415; 80053; 80061; 83704

== ENCOUNTER → 2022-03-16 07:47 | Outpatient (CLI) | payer MEDICARE, OTHER, SELFPAY ==
[2022-03-19 09:30] LABS: Cholesterol, Total 158 mg/dL (100-199); HDL-Cholesterol 89 mg/dL (>39); HDL-Particle (Total) 49.6 umol/L (>=30.5); LDL Particle 465 nmol/L (<1000); LDL Size 20.1 nm (>20.5); LDL-Cholsterol 56 mg/dL (0-99); LP-IR Score <25 (<=45); Small LDL- Particle 193 nmol/L (<=527); Triglycerides 63 mg/dL (0-149)
== END ==
PROVIDERS: Family Provider Family Medicine; PCP Family Medicine; Referring Provider Specialist; Visit Provider Specialist
DX: I10 Essential (primary) hypertension (principal); E78.5 Hyperlipidemia, unspecified
CPT/HCPCS: 36415; 80061; 83704

== ENCOUNTER 2022-11-01 07:39 | Day surgery (SDC) | payer MEDICARE, OTHER, SELFPAY ==
[2022-11-01 08:00] VITALS: BP 169/80; PULSE 71; RESP 16; TEMP 36.1; O2SAT 100; BMI 22.8
[2022-11-01] MEDS: LACTATED RINGERS 1,000 ML 100 ML IV (08:00)
--- NOTE | 2022-11-01 09:19 | PM.HP.1 ---
History of Present Illness History of Present Illness Date Patient Seen: 11/01/22 Time Patient Seen: 09:19 Chief complaint: Colonoscopy Narrative: 77-year-old man here for screening colonoscopy. Personal history of colonic polyps. No family history of colon cancer. Last colonoscopy approximately 5 years ago. No abdominal pain nausea vomiting unintentional weight loss or blood per rectum [facility] Medical History (Updated 11/01/22 @ 09:20 by Willi Saldana MD) Actinic keratosis (1989) BPH (benign prostatic hyperplasia) (2009) Chicken pox (1952) Facet arthropathy, lumbar Fractures Hayfever (1959) Hypertension (1994) Lumbosacral radiculopathy at L1 Scoliosis (and kyphoscoliosis), idiopathic TIA (transient ischemic attack) (2006) Tinnitus (2009) Vertigo (2014) Surgical History Anesthesia History of removal of cyst (2015) History of removal of cyst (2011) History of shoulder surgery (1968) Family History Brother Age: 79 Hypertension Father Heart disease Hypertension Heart attack Heart failure Mother Hypertension Alzheimer's disease Sister No problems noted. Social History household members: spouse Smoking Status: Never smoker alcohol intake: current Meds Home Medications and Allergies Home Medications Medication Instructions Recorded Confirmed Type PSYLLIUM (#METAMUCIL) 1 tsp PO Q DAY ##0 09/15/10 11/01/22 History [MULTIVITAMIN] ##0 09/15/10 07/20/20 History calcipotriene 0.005 % topical 1 gm topical BID ##60 05/30/16 11/01/22 Rx cream (Dovonex) fluorouracil 5 % topical cream 5 % TP BID ##45 05/30/16 11/01/22 Rx (Efudex) atorvastatin 40 mg tablet (Lipitor) 40 mg PO HS #90 tabs 12/26/16 11/01/22 Rx aspirin 81 mg tablet,delayed 81 mg PO DAILY 09/04/19 11/01/22 History release tamsulosin 0.4 mg capsule (Flomax) 0.8 mg PO QDAY 09/04/19 07/20/20 History celecoxib 200 mg capsule (Celebrex) 200 mg PO DAILY #90 caps 11/04/20 Rx tramadol 50 mg tablet See Rx Instructions .Route 07/13/22 11/01/22 Rx .COMPLEX #30 tabs sodium,potassium,mag sulfates 17.5 See Rx Instructions PO .COMPLEX 09/21/22 11/01/22 Rx gram-3.13 gram-1.6 gram oral soln #354 mL (Suprep Bowel Prep Kit) Allergies Allergy/AdvReac Type Severity Reaction Status Date / Time No Known Drug Allergies Allergy Verified 10/07/20 14:28 Exam Vital Signs (past 8 hours): - 11/01/22 08:00 Temperature 97 F L Pulse Rate 71 Respiratory Rate 16 Blood Pressure 169/80 H Pulse Oximetry 100 Oxygen Delivery Method Room Air Oxygen Delivery Method Room Air Narrative Exam Narrative: General adult man alert oriented no acute distress Abdomen soft nontender nondistended Assessment & Plan Assessment and plan (1) Personal history of colonic polyps: Status: Acute Assessment & Plan narrative: The patient requires colorectal screening and colonoscopy is recommended. Technical details were discussed. Risks, benefits, alternatives explained. Risks including but not limited to myocardial infarction, aspiration, bleeding, pain, missed lesion, incomplete examination, need for further radiographic studies, colonic perforation, and need for major abdominal surgery were discussed. All questions were answered to their satisfaction, and they are in agreement with this plan.
[2022-11-01 09:45] VITALS: BP 138/76; PULSE 57; RESP 20; TEMP 36.1; O2SAT 97
[2022-11-01 09:50] VITALS: BP 132/74; PULSE 55; RESP 18; O2SAT 98
--- NOTE | 2022-11-01 09:52 | PM.OP.COLON ---
Operative Date/Time/Diagnoses Date of procedure: 11/01/22 Time of procedure: 09:53 Pre-op diagnosis: Personal history of colonic polyps Post-op diagnosis: same Procedure & Clinicians Study performed: Colonoscopy Same procedure as scheduled: Yes Indications: Personal history of colonic polyps Surgeon: Willi Saldana Procedure Notes Procedure in detail: The history and physical was performed/updated and the patient is ASA class is 2. The procedure was discussed in detail with the patient. Potential risks complications including infection, bleeding, missed diagnosis, perforation, need for surgery, and were explained. Their questions were answered and informed consent was obtained. Patient was brought to the procedure room and placed standard monitoring equipment. The patient's vital signs were monitored continuously throughout the entire procedure. Prior to starting time-out was performed. The patient was placed in the left lateral recumbent position. Procedural sedation was administered by anesthesia. Examination began with a thorough inspection of the perianal area there was no evidence of fissures, fistulae, external hemorrhoids or cutaneous malignancy. The colonoscopy scope was then placed into the anal canal and was advanced to the cecum, which was identified by the ileocecal valve, the appendiceal orifice and the confluence of the taenia. The scope was then slowly withdrawn examining colon thoroughly in all directions, irrigating it of any residual stool. No masses or polyps. Normal healthy colon The patient tolerated the procedure well. They will be discharged once criteria are met. The prep was of good/excellent quality. The withdrawl time was 7 minutes. Complications: none Impression: Normal colonoscopy Post-procedure Plan for aftercare: No need for further colonoscopy unless symptomatic Disposition: same day surgery
[2022-11-01 09:55] VITALS: BP 143/75; PULSE 55; RESP 19; O2SAT 97
[2022-11-01 10:15] VITALS: BP 169/74; PULSE 55; RESP 16; TEMP 36.3; O2SAT 98
--- NOTE | 2022-11-01 10:37 | SUR.PHASEII ---
Pt given discharge instructions. Pt to be discharged with Al Sanchez and this is fine with Dr. Saldana. Pt denies pain and dizziness.
== END 2022-11-01 10:39 | disposition home or self-care (01) ==
PROVIDERS: Family Provider Family Medicine; PCP Family Medicine; Referring Provider Surgery; Visit Provider Surgery
PROC: 0DJD8ZZ Inspection of Lower Intestinal Tract, Via Natural or Artificial Opening Endoscopic (ICD-10-PCS; CPT 45378; principal; 2022-11-01 09:00)
DX: Z12.11 Encounter for screening for malignant neoplasm of colon (principal); Z86.010 Personal history of colon polyps
CPT/HCPCS: G0105; J2704

== ENCOUNTER → 2023-07-26 08:48 | Outpatient (CLI) | payer MEDICARE, OTHER, SELFPAY ==
--- NOTE | 2023-07-26 08:51 | DI.RAD.S_ITS ---
PROCEDURE: XR LUMBAR SPINE MIN 4V INDICATIONS: BACK PAIN TECHNIQUE: 5 views of the lumbar spine were acquired, including bilateral oblique views. COMPARISON: MR, MR LUMBAR SPINE WITHOUT CONTRAST, 03/12/2019, 13:01. Outside Facility, [facility], XR L-SPINE 2-3V, 02/26/2019, 13:20. Outside Facility, [facility], XR L-SPINE 2-3V, 06/01/2020, 11:03. FINDINGS: Bones: 5 [id number] vertebrae are present. There is moderate scoliosis. No vertebral body compression fractures. No suspicious bony lesions. Multilevel degenerative disc disease, most pronounced and moderate at L1-L2 and L2-L3, mild at other levels. Moderate facet arthropathy at L5-S1. Prominent left lateral osteophytes are seen at L1-L2 and L2-L3. Soft tissues: Overlying bowel gas pattern is normal. No suspicious soft tissue calcifications. Calcific foci in pelvis are likely pelvic phleboliths. Oblique images: No pars defects. IMPRESSION: 1. Moderate degenerative disc and facet disease in lumbar spine. 2. Moderate scoliosis. Dictated by: Jimbo Quesada M.D. on 07/26/2023 at 11:45 Approved by: Jimbo Quesada M.D. on 07/26/2023 at 11:51
== END ==
PROVIDERS: Family Provider Family Medicine; PCP Family Medicine; Referring Provider Physical Medicine & Rehabilitation; Visit Provider Physical Medicine & Rehabilitation
DX: M47.27 Other spondylosis with radiculopathy, lumbosacral region (principal); M51.16 Intervertebral disc disorders with radiculopathy, lumbar region; M47.26 Other spondylosis with radiculopathy, lumbar region; M51.17 Intervertebral disc disorders with radiculopathy, lumbosacral region; M41.20 Other idiopathic scoliosis, site unspecified
CPT/HCPCS: 72110

== ENCOUNTER → 2023-08-18 11:13 | Outpatient (CLI) | payer MEDICARE, OTHER, SELFPAY ==
[2023-08-18 13:00] LABS: Alanine Aminotransferase 20 IU/L (<50); Albumin 4.6 g/dL (3.5-5.0); Albumin Globulin Ratio 1.6 (1.0-2.8); Alkaline Phosphatase 61 U/L (38-126); Aspartate Aminotransferase 36 IU/L (17-59); BUN Creatinine Ratio 21.3 (6-22); Bilirubin Total 1.7 mg/dL (0.2-1.3); Blood Urea Nitrogen 19 mg/dL (9-20); Calcium 9.4 mg/dL (8.4-10.2); Carbon Dioxide 26 mmol/L (22-32); Chloride 101 mmol/L (98-107); Cholesterol 149 mg/dL (140-199); Estimated Glomerular Filt Rate > 60 mL/min (>60); Globulin 2.8 g/dL (1.7-4.1); Glucose 86 mg/dL (80-110); HDL Cholesterol 91 mg/dL (40-60); HEMOLYSIS < 15 (0-50); LDL Cholesterol Calculated 45 mg/dL (<100); Magnesium 1.7 mg/dL (1.6-2.3); Potassium 4.5 mmol/L (3.4-5.1); Sodium 134 mmol/L (137-145); Total Protein 7.4 g/dL (6.3-8.2); Triglycerides 63 mg/dL (35-150)
[2023-08-18 13:33] LABS: Testosterone 412 ng/dL (71.8-623)
[2023-08-18 13:45] LABS: Prostate Specific Antigen < 0.064 ng/mL (0.10-4.00)
== END ==
PROVIDERS: Urology; Family Provider Family Medicine; PCP Family Medicine; Referring Provider Urology; Visit Provider Specialist
DX: I10 Essential (primary) hypertension (principal); E78.5 Hyperlipidemia, unspecified; C61 Malignant neoplasm of prostate; I47.10 Supraventricular tachycardia, unspecified; N52.31 Erectile dysfunction following radical prostatectomy
CPT/HCPCS: 36415; 80053; 80061; 83735; 84153; 84403

== ENCOUNTER → 2023-12-19 08:20 | Outpatient (CLI) | payer MEDICARE, OTHER, SELFPAY ==
--- NOTE | 2023-12-19 | DI.CT.S_ITS ---
PROCEDURE: CT HEAD/BRAIN WO CON INDICATIONS: DOUBLE VISION, DISORIENTATION, BILAT HAND TREMOR TECHNIQUE: Noncontrast 4.5 mm thick angled axial sections acquired from the foramen magnum to the vertex, with coronal and sagittal reformats. For radiation dose reduction, the following was used: automated exposure control, adjustment of mA and/or kV according to patient size. COMPARISON: None. FINDINGS: Image quality: Diagnostic. CSF spaces: Basal cisterns are patent. No extra-axial fluid collections. The ventricles are symmetric in size and shape. Brain: No intracranial bleeds or masses. There is cerebral volume loss for age, with resultant ventricular and sulcal prominence. There are periventricular and deep white matter chronic small vessel ischemic changes. There is intracranial internal carotid artery atherosclerosis. Skull and face: Calvarium and visualized facial bones appear intact, without suspicious lesions. Sinuses: Visualized sinuses and mastoids are clear. IMPRESSION: 1. No acute intracranial process. 2. Moderate atrophy and chronic microvascular ischemic changes. Dictated by: Brittney Goddard M.D. on 12/19/2023 at 10:13 Approved by: Brittney Goddard M.D. on 12/19/2023 at 10:13
== END ==
LOC: CT 08:21
PROVIDERS: Family Provider Family Medicine; PCP Family Medicine; Referring Provider Nurse Practitioner; Visit Provider Nurse Practitioner
DX: H53.2 Diplopia (principal); R41.0 Disorientation, unspecified; R25.1 Tremor, unspecified; I65.29 Occlusion and stenosis of unspecified carotid artery
CPT/HCPCS: 70450

== ENCOUNTER 2024-01-22 08:22 | Emergency (ER) | payer MEDICARE, OTHER, SELFPAY ==
[2024-01-22] VITALS (16 sets, daily range): BP systolic 107–167; BP diastolic 56–83; PULSE 50–68; RESP 11–18; TEMP 36.4; O2SAT 95–100; BMI 22.8
--- NOTE | 2024-01-22 08:25 | ED.NEUROSD ---
HPI - Neuro Symptoms/Deficit General Chief Complaint: Neuro Symptoms/Deficit Stated Complaint: thinks he's having TIA's/ s or seizures Time Seen by Provider: 01/22/24 08:25 History of Present Illness HPI Narrative: Patient is a 78-year-old male history of hyper tension hyperlipidemia presents to the emergency department for evaluation of headache, dizziness, migraine with aura. History of migraines with aura, states it has been ongoing persistent for the past several weeks to months. States that he saw his primary care doctor in his glass etcher helper and instructed to come into the ED for further evaluation treatment. He states that he is worried he might be having TIAs or seizures. However he states that he is remembering all of the symptoms. He thinks he has having a seizure because he was having scotomas when he has not having any headaches with his migraines. However he states this is very normal. He just states that he is been instructed multiple times by his doctor and his glass etcher helper to come to the ER to be evaluated. Currently is not having any headache or visual disturbances. He is not having any symptoms at this time. No headache no shortness of breath no chest pain no recent travel no known sick contacts. Related Data Home Medications Medication Instructions Recorded Confirmed PSYLLIUM (#METAMUCIL) 1 tsp PO Q DAY ##0 09/15/10 12/05/23 [MULTIVITAMIN] ##0 09/15/10 12/05/23 aspirin 81 mg tablet,delayed 81 mg PO DAILY 09/04/19 12/05/23 release lisinopril 5 mg tablet 5 mg PO DAILY 07/26/23 12/05/23 Previous Rx's Medication Instructions Recorded calcipotriene 0.005 % topical 1 gm topical BID ##60 05/30/16 cream (Dovonex) fluorouracil 5 % topical cream 5 % TP BID ##45 05/30/16 (Efudex) atorvastatin 40 mg tablet (Lipitor) 40 mg PO HS #90 tabs 12/26/16 tramadol 50 mg tablet See Rx Instructions .Route 07/19/23 .COMPLEX #30 tabs Allergies Allergy/AdvReac Type Severity Reaction Status Date / Time No Known Drug Allergies Allergy Verified 12/05/23 15:00 Review of Systems Review of Systems Narrative: General: Denies fever, chills, weight loss HEENT: Denies headache, eye drainage, eye irritation, head trauma, sore throat, voice change Cardiovascular: Denies any chest pain, palpitations, shortness of breath, tachycardia Respiratory: Denies any shortness of breath, cough, wheeze, stridor GI/: Denies any abdominal pain, nausea, vomiting, diarrhea, bright red blood per rectum, melanotic stools, urinary frequency, urinary retention, dysuria, hematuria MSK: Denies any joint pain, muscle pains, swelling Skin: Denies any rashes, lesions, discoloration Neuro: Positive headache, lightheaded, dizziness, scotoma Psych: Denies SI/HI Patient History Medical History (Updated 01/22/24 @ 16:00 by Himanshu Moragn DO) Facet arthropathy, lumbar Scoliosis (and kyphoscoliosis), idiopathic Lumbosacral radiculopathy at L1 Vertigo (2014) BPH (benign prostatic hyperplasia) (2009) TIA (transient ischemic attack) (2006) Hypertension (1994) Tinnitus (2009) Chicken pox (1952) Fractures Hayfever (1959) Actinic keratosis (1989) Surgical History Anesthesia History of removal of cyst (2011) History of removal of cyst (2015) History of shoulder surgery (1968) Family History Brother Age: 80 Hypertension Father Heart disease Hypertension Heart attack Heart failure Mother Hypertension Alzheimer's disease Sister No problems noted. Social History household members: spouse Smoking Status: Never smoker alcohol intake: current Smoking Status: Never smoker alcohol intake frequency: a few times a week Substance Use Type: does not use Exam Narrative Exam Narrative: General: Cooperative, comfortable, well-developed, not in acute distress HEENT: Normocephalic, atraumatic, PERRLA, normal sclera, eyelids normal, Neck: Active full range of motion, atraumatic Chest: Normal to inspection, negative crepitus, no overlying erythema ecchymosis Respiratory: Normal respiratory effort, not in acute respiratory distress, clear to auscultation bilaterally negative cough, wheeze, tachypnea, rhonchi, rales Cardiology: Regular rate rhythm negative gallop, murmur, rubs GI/: Normal to inspection, soft, nonrigid, no tenderness to palpation, exam deferred MSK: Full range of active range of motion of all 4 extremities, atraumatic Skin: No rashes lesions noted Neuro: Alert awake oriented x3, moves all 4 extremities spontaneously, cranial nerves intact, able to answer all questions appropriately follows commands appropriately, NIH of 0 no focal deficits Psych: Cooperative, negative suicidal or homicidal ideations Initial Vital Signs Initial Vital Signs: Vital Signs Pulse Rate 65 01/22/24 08:31 Pulse Oximetry 99 01/22/24 08:31 Course Orders Ordered: ED Orders 01/22/24 08:30 CT angio head and neck Stat CT head/brain wo con Stat EKG-12 Lead Stat 01/22/24 08:50 Complete Blood Count AUTO DIFF Stat Comprehensive Metabolic Panel Stat Prothrombin Time INR Stat Troponin I Stat 01/22/24 12:34 MR head/brain wo con Stat Vital Signs Vital signs: Vital Signs - 8 hr 01/22/24 08:31 01/22/24 08:32 01/22/24 09:00 Temperature 97.6 F Pulse Rate 65 68 62 Respiratory Rate 18 15 Blood Pressure 151/70 H Pulse Oximetry 99 98 98 Oxygen Delivery Method Room Air 01/22/24 09:00 01/22/24 09:30 01/22/24 09:30 Temperature Pulse Rate 59 L Respiratory Rate 14 Blood Pressure 112/59 L 125/58 L Pulse Oximetry 97 Oxygen Delivery Method 01/22/24 09:44 01/22/24 09:44 01/22/24 10:00 Temperature Pulse Rate 62 57 L Respiratory Rate 12 14 Blood Pressure 122/64 Pulse Oximetry 95 96 Oxygen Delivery Method 01/22/24 10:00 01/22/24 10:30 01/22/24 10:30 Temperature Pulse Rate 62 Respiratory Rate 14 Blood Pressure 125/59 L 167/72 H Pulse Oximetry 100 Oxygen Delivery Method 01/22/24 11:00 01/22/24 11:00 01/22/24 11:30 Temperature Pulse Rate 57 L Respiratory Rate 15 Blood Pressure 118/56 L 110/56 L Pulse Oximetry 97 Oxygen Delivery Method 01/22/24 11:30 01/22/24 12:00 01/22/24 12:01 Temperature Pulse Rate 57 L 58 L 57 L Respiratory Rate 14 15 14 Blood Pressure Pulse Oximetry 97 97 98 Oxygen Delivery Method 01/22/24 12:01 01/22/24 12:30 01/22/24 12:30 Temperature Pulse Rate 54 L Respiratory Rate 14 Blood Pressure 127/58 L 107/56 L Pulse Oximetry 96 Oxygen Delivery Method 01/22/24 13:00 01/22/24 13:00 01/22/24 14:50 Temperature Pulse Rate 55 L 54 L Respiratory Rate 16 Blood Pressure 111/59 L Pulse Oximetry 96 98 Oxygen Delivery Method 01/22/24 14:51 01/22/24 14:51 01/22/24 15:00 Temperature Pulse Rate 52 L 50 L Respiratory Rate 11 L Blood Pressure 161/78 H Pulse Oximetry 100 100 Oxygen Delivery Method Room Air 01/22/24 15:00 Temperature Pulse Rate Respiratory Rate Blood Pressure 153/83 H Pulse Oximetry Oxygen Delivery Method MDM - Neuro Symptoms/Deficit Differential Diagnosis Differential diagnosis: Likely cerebrovascular accident and other (Electrolyte abnormality, atypical migraine) Lab Data 01/22/24 08:50 01/22/24 08:50 Labs: Lab Results 01/22/24 Range/Units 08:50 WBC 5.1 (4.5-11.0) X10^3/uL RBC 4.41 L (4.5-5.9) X10^6/uL Hgb 14.6 (13.5-17.5) g/dL Hct 42.3 (41-53) % MCV 95.9 (80-100) fL MCH 33.2 (26-34) PG MCHC 34.6 (30-36) % RDW 12.7 (11.6-14.8) % Plt Count 244 (150-400) X10^3/uL Neut % (Auto) 61.4 (50-75) % Lymph % (Auto) 21.2 L (25-40) % Coke % (Auto) 11.1 (3-14) % Eos % (Auto) 5.2 H (2-4) % Baso % (Auto) 1.1 (0-2) % Neut # (Auto) 3100 (5973-2724) /uL Lymph # (Auto) 1100 (0796-1654) /uL [place] # (Auto) 600 (0-900) /uL Eos # (Auto) 300 (0-450) /uL Baso # (Auto) 100 (0-100) /uL PT 10.7 (9.4-12.5) SECONDS INR 0.9 (0.9-1.3) Sodium 134 L (137-145) mmol/L Potassium 4.6 (3.4-5.1) mmol/L Chloride 101 (98-107) mmol/L Carbon Dioxide 25 (22-32) mmol/L BUN 27 H (9-20) mg/dL Creatinine 1.02 (0.66-1.25) mg/dL Estimated GFR > 60 (>60) mL/min BUN/Creatinine Ratio 26.5 H (6-22) Glucose 106 (80-110) mg/dL Calcium 9.4 (8.4-10.2) mg/dL Total Bilirubin 1.5 H (0.2-1.3) mg/dL AST 33 (17-59) IU/L ALT 18 (<50) IU/L Alkaline Phosphatase 60 (38-126) U/L Troponin I < 0.012 (0.01-0.034) ng/mL Total Protein 7.2 (6.3-8.2) g/dL Albumin 4.4 (3.5-5.0) g/dL Globulin 2.8 (1.7-4.1) g/dL Albumin/Globulin Ratio 1.6 (1.0-2.8) Point of Care Testing Glucose POC 128 Urine Dip Bedside Urine Glucose Negative Bedside Urine Bilirubin - Negative Bedside Urine Ketone - Negative Urine Specific [place] 1.010 Bedside Urine Occult Blood - Negative Bedside Urine pH 6.0 Bedside Urine Protein - Negative Bedside Urine Urobilinogen - Negative Bedside Urine Nitrite - Negative Bedside Urine Leukocytes - Negative Esterase Imaging Data CT scan - head: Radiologist's Impression: [address] [address] [address] Scan Report Signed Patient: Harris Gallardo MR#: [id number] : 1945 Acct:[id number] Age/Sex: 78 / M Date of Service: 01/22/24 Loc: ED Accession Number: [id number] Procedure: CT head/brain wo con Ordering Provider: Himanshu Morgan D.O. PROCEDURE: CT HEAD/BRAIN WO CON INDICATIONS: lightheaded / dizzy TECHNIQUE: Noncontrast 4.5 mm thick angled axial sections acquired from the foramen magnum to the vertex, with coronal and sagittal reformats. For radiation dose reduction, the following was used: automated exposure control, adjustment of mA and/or kV according to patient size. COMPARISON: [facility], CT, CT ANGIO HEAD AND NECK, 01/22/2024, 9:36. [facility], CT, CT HEAD/BRAIN WO CON, 12/19/2023, 8:37. FINDINGS: Image quality: Diagnostic. CSF spaces: Basal cisterns are patent. No extra-axial fluid collections. The ventricles are symmetric in size and shape. Brain: No intracranial bleeds or masses. There is cerebral volume loss for age, with resultant ventricular and sulcal prominence. There are periventricular and deep white matter chronic small vessel ischemic changes. There is intracranial internal carotid artery atherosclerosis. Skull and face: Calvarium and visualized facial bones appear intact, without suspicious lesions. Sinuses: Visualized sinuses and mastoids are clear. IMPRESSION: 1. No acute intracranial process. 2. Moderate atrophy and chronic microvascular ischemic changes. CTA - brain/neck: Radiologist's Impression: [place] [address] CT Scan Report Signed Patient: Harris Gallardo MR#: [id number] : 1945 Acct:[id number] Age/Sex: 78 / M Date of Service: 01/22/24 Loc: ED Accession Number: [id number] Procedure: CT angio head and neck Ordering Provider: Himanshu Morgan D.O. PROCEDURE: CT ANGIO HEAD AND NECK INDICATIONS: lightheaded / dizzy TECHNIQUE: After the administration of intravenous contrast, 1 mm thick sections acquired from the aortic arch through the [place] of [place]. 3-dimensional lemlest-phodwinxr-wldbhrdfdj (MIP) and/or volume rendering reformats were acquired of the central intracranial vasculature and neck separately. For radiation dose reduction, the following was used: automated exposure control, adjustment of mA and/or kV according to patient size. COMPARISON: [facility], CT, CT HEAD/BRAIN WO CON, 01/22/2024, 9:36. [facility], CT, CT HEAD/BRAIN WO CON, 12/19/2023, 8:37. MR, BRAIN W&WO CONTRAST, 10/13/2014, 17:36. FINDINGS: Image quality: Diagnostic. BRAIN: See separately dictated CT head report of 01/22/2024. HEAD CT ANGIOGRAPHY: Anterior circulation: Intracranial internal carotid arteries are normal in size and flow. The flow within the paired anterior cerebral arteries is normal and symmetric. The flow within the middle cerebral arteries is normal and symmetric. The anterior communicating artery is seen. No aneurysms are seen. Posterior circulation: Visualized portions of the vertebral arteries demonstrate normal caliber, and join to form a normal appearing basilar artery. Flow within the posterior cerebral arteries is normal and symmetric. No aneurysms are seen. NECK CT ANGIOGRAPHY: Carotid system: The great vessels demonstrate a conventional anatomy as they arise from the aortic arch. The origins of the common carotid arteries appear patent. The common carotid arteries demonstrate normal caliber and courses. The bifurcation regions are both widely patent. There is approximately 50-60% stenosis secondary to calcifications at the origin of the right internal carotid artery. Approximate 50% narrowing is present at the origin of the left internal carotid artery. Posterior circulation: There is occlusion of the left vertebral artery from the origin with distal reconstitution at the level of C4-5. No priors are available for comparison. The more superior extracranial portions of both vertebral arteries also demonstrate normal courses and calibers. They join to form a normal appearing basilar artery. Soft tissues: Visualized neck soft tissues demonstrate no suspicious abnormalities. Bones: No suspicious bony lesions. Visualized cervical spine appears normally aligned. 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 It is age indeterminate as no priors are available for comparison. 50-60% stenosis at the origins of the internal carotid arteries bilaterally, right greater than left. Any quantitative measurements of stenosis were performed using NASCET criteria. MRI brain: Radiologist's Impression: PROCEDURE: MR HEAD/BRAIN WO CON INDICATIONS: Vertebral artery occlusion TECHNIQUE: Non-contrast axial T1 spin echo, axial T2 fast spin echo, sagittal and axial FLAIR, coronal T2 fast spin echo, axial gradient echo, axial diffusion and ADC through the brain. COMPARISON: [facility], CT, CT ANGIO HEAD AND NECK, 01/22/2024, 9:36. FINDINGS: Image quality: Excellent. CSF spaces: Ventricles appear symmetric in size and shape. Basal cisterns are patent. No extra-axial fluid collections. Brain: No intracranial bleeds or mass effects. There is cerebral volume loss for age. There are periventricular and deep white matter chronic small vessel ischemic changes. Brainstem appears normal. Diffusion-weighted images show no acute infarct. No chronic ischemic insults. Normal intravascular flow voids are present. Skull and face: Calvarial bone marrow is normal in signal. Orbits are normal. Sinuses: Sinuses and mastoids are clear. IMPRESSION: 1. No acute intracranial process. 2. Moderate atrophy and chronic microvascular ischemic changes. ECG Data Attestation: I personally reviewed and interpreted this ECG as follows: Interpretation: EKG interpreted by ED physician, sinus at 65 beats per minute, QTC 451, normal axis, nonspecific ST changes, no STEMI MDM Narrative Medical decision making narrative: Patient is a 78-year-old male history of hypertension hyperlipidemia presents for persistent intermittent headache with aura. States this is similar to his history of migraines, however it is been persistent for the past several weeks to months, did see his primary care doctor and his glass etcher helper for this and instructed come into the ED for further evaluation treatment. He states that they think he might be having TIAs or seizures. However at time of evaluation patient NIH of 0 he has not having any symptoms at this time. 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 It is age indeterminate as no priors are available for comparison. 50-60% stenosis at the origins of the internal carotid arteries bilaterally, right greater than left. 1100: Discussed case with Neurosurgery Dr. Pettit, states will review the images and get back with further recommendation 1233: Discussed case again with general Neurology, they are recommending patient obtain a MRI brain without to rule out any acute stroke, if negative would recommend continuing aspirin and statin no Plavix, states the call back with any acute findings otherwise patient would be safe for discharge home. 1600: Patient was re-evaluated informed him of his negative MRI, still without any headache visual disturbances no new symptoms at this time, I informed him to continue his baby aspirin and his statin in an outpatient setting to follow up with Neurology and his primary care doctor strict return precautions were given he verbalized understanding of this and agrees to being discharged home with outpatient follow up. Discharge Plan Departure Patient Disposition: Home Clinical Impression: Atypical migraine, Occlusion of vertebral artery Activity Restrictions/Additional Instructions: Please follow up with the primary care doctor and Neurology in outpatient setting please continue to take your statin and your aspirin on a daily basis Please read the discharge instructions sheet carefully and bring all papers to all doctor follow-up visits, as it may contain information that your doctor may want to see. Disease processes change and evolve, if your symptoms worsen or if you develop any new symptoms that are concerning to you please return for evaluation. Your evaluation today does not show any evidence of any life-threatening/serious illnesses requiring admission to the hospital or surgery. Please follow-up with your doctor for re-evaluation in approximately 1 day. Seek immediate medical attention for any worrisome symptoms. Prescriptions: No Action [MULTIVITAMIN] Qty: 0 PSYLLIUM (#METAMUCIL) 1 tsp PO Q DAY Qty: 0 fluorouracil [Efudex] 5 % cream 5 % TP BID Qty: 45 0RF calcipotriene [Dovonex] 0.005 % cream 1 gm Topical BID Qty: 60 0RF atorvastatin [Lipitor] 40 MG tablet 40 mg PO HS Qty: 90 0RF tramadol 50 mg tablet See Rx Instructions .ROUTE .COMPLEX Qty: 30 1RF Dose Instruction: TAKE ONE(1) TABLET BY MOUTH THREE(3) TIMES DAILY NEEDED FOR PAIN Rx Instructions: TAKE ONE(1) TABLET BY MOUTH THREE(3) TIMES DAILY NEEDED FOR PAIN lisinopril 5 mg tablet 5 mg PO DAILY aspirin 81 mg tablet,delayed release (DR/EC) 81 mg PO DAILY Referrals: Ling Muller MD [Primary Care Provider] - Stand Alone Forms: Patient Portal/API
--- NOTE | 2024-01-22 08:30 | DI.CT.S_ITS ---
PROCEDURE: CT HEAD/BRAIN WO CON INDICATIONS: lightheaded / dizzy TECHNIQUE: Noncontrast 4.5 mm thick angled axial sections acquired from the foramen magnum to the vertex, with coronal and sagittal reformats. For radiation dose reduction, the following was used: automated exposure control, adjustment of mA and/or kV according to patient size. COMPARISON: [facility], CT, CT ANGIO HEAD AND NECK, 01/22/2024, 9:36. [facility], CT, CT HEAD/BRAIN WO CON, 12/19/2023, 8:37. FINDINGS: Image quality: Diagnostic. CSF spaces: Basal cisterns are patent. No extra-axial fluid collections. The ventricles are symmetric in size and shape. Brain: No intracranial bleeds or masses. There is cerebral volume loss for age, with resultant ventricular and sulcal prominence. There are periventricular and deep white matter chronic small vessel ischemic changes. There is intracranial internal carotid artery atherosclerosis. Skull and face: Calvarium and visualized facial bones appear intact, without suspicious lesions. Sinuses: Visualized sinuses and mastoids are clear. IMPRESSION: 1. No acute intracranial process. 2. Moderate atrophy and chronic microvascular ischemic changes. Dictated by: Brittney Goddard M.D. on 01/22/2024 at 10:09 Approved by: Brittney Goddard M.D. on 01/22/2024 at 10:13
--- NOTE | 2024-01-22 08:30 | DI.CT.S_ITS ---
PROCEDURE: CT ANGIO HEAD AND NECK INDICATIONS: lightheaded / dizzy TECHNIQUE: After the administration of intravenous contrast, 1 mm thick sections acquired from the aortic arch through the [place] of [place]. 3-dimensional rkowpsy-guazgnwbj-vyzibntmxe (MIP) and/or volume rendering reformats were acquired of the central intracranial vasculature and neck separately. For radiation dose reduction, the following was used: automated exposure control, adjustment of mA and/or kV according to patient size. COMPARISON: [facility], CT, CT HEAD/BRAIN WO CON, 01/22/2024, 9:36. [facility], CT, CT HEAD/BRAIN WO CON, 12/19/2023, 8:37. MR, BRAIN W&WO CONTRAST, 10/13/2014, 17:36. FINDINGS: Image quality: Diagnostic. BRAIN: See separately dictated CT head report of 01/22/2024. HEAD CT ANGIOGRAPHY: Anterior circulation: Intracranial internal carotid arteries are normal in size and flow. The flow within the paired anterior cerebral arteries is normal and symmetric. The flow within the middle cerebral arteries is normal and symmetric. The anterior communicating artery is seen. No aneurysms are seen. Posterior circulation: Visualized portions of the vertebral arteries demonstrate normal caliber, and join to form a normal appearing basilar artery. Flow within the posterior cerebral arteries is normal and symmetric. No aneurysms are seen. NECK CT ANGIOGRAPHY: Carotid system: The great vessels demonstrate a conventional anatomy as they arise from the aortic arch. The origins of the common carotid arteries appear patent. The common carotid arteries demonstrate normal caliber and courses. The bifurcation regions are both widely patent. There is approximately 50-60% stenosis secondary to calcifications at the origin of the right internal carotid artery. Approximate 50% narrowing is present at the origin of the left internal carotid artery. Posterior circulation: There is occlusion of the left vertebral artery from the origin with distal reconstitution at the level of C4-5. No priors are available for comparison. The more superior extracranial portions of both vertebral arteries also demonstrate normal courses and calibers. They join to form a normal appearing basilar artery. Soft tissues: Visualized neck soft tissues demonstrate no suspicious abnormalities. Bones: No suspicious bony lesions. Visualized cervical spine appears normally aligned. 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 It is age indeterminate as no priors are available for comparison. 50-60% stenosis at the origins of the internal carotid arteries bilaterally, right greater than left. Any quantitative measurements of stenosis were performed using NASCET criteria. Dictated by: Brittney Goddard M.D. on 01/22/2024 at 10:13 Approved by: Brittney Goddard M.D. on 01/22/2024 at 10:25
--- NOTE | 2024-01-22 08:30 | EKG_ITS ---
[address] [address] Test Date: 2024-01-22 Pat Name: Harris Gallardo Department: [facility] Room: Gender: Male National Business Director: SHAYNE : 1945 Requested By: Order Number: [id number] Reading MD: Himanshu North Measurements Intervals [place] Rate: 65 P: 64 [place]: 190 QRS: -28 QRSD: 80 T: 39 QT: 434 QTc: 451 Interpretive Statements Normal sinus rhythm Electronically Signed On 01-24-2024 17:44:00 PDT by Himanshu North
[2024-01-22 09:04] LABS: Add Manual Diff / Slide Review NO; Basophils Absolute Auto 100 /uL (0-100); Basophils Percent Auto 1.1 % (0-2); Eosinophils Absolute Auto 300 /uL (0-450); Eosinophils Percent Auto 5.2 % (2-4); Hematocrit 42.3 % (41-53); Hemoglobin 14.6 g/dL (13.5-17.5); Lymphocytes Absolute Auto 1100 /uL (1100-4500); Lymphocytes Percent Auto 21.2 % (25-40); Mean Corpuscular HGB Conc 34.6 % (30-36); Mean Corpuscular Hemoglobin 33.2 PG (26-34); Mean Corpuscular Volume 95.9 fL (80-100); Monocytes Absolute Auto 600 /uL (0-900); Monocytes Percent Auto 11.1 % (3-14); Neutrophils Absolute Auto 3100 /uL (1500-7000); Neutrophils Percent Auto 61.4 % (50-75); Platelet Count 244 X10^3/uL (150-400); Red Blood Cell Count 4.41 X10^6/uL (4.5-5.9); Red Cell Distribution Width 12.7 % (11.6-14.8); White Blood Cell Count 5.1 X10^3/uL (4.5-11.0)
[2024-01-22 09:08] LABS: INR 0.9 (0.9-1.3); Prothrombin Time 10.7 SECONDS (9.4-12.5)
[2024-01-22 09:11] LABS: Alanine Aminotransferase 18 IU/L (<50); Albumin 4.4 g/dL (3.5-5.0); Albumin Globulin Ratio 1.6 (1.0-2.8); Alkaline Phosphatase 60 U/L (38-126); Aspartate Aminotransferase 33 IU/L (17-59); BUN Creatinine Ratio 26.5 (6-22); Bilirubin Total 1.5 mg/dL (0.2-1.3); Blood Urea Nitrogen 27 mg/dL (9-20); Calcium 9.4 mg/dL (8.4-10.2); Carbon Dioxide 25 mmol/L (22-32); Chloride 101 mmol/L (98-107); Estimated Glomerular Filt Rate > 60 mL/min (>60); Globulin 2.8 g/dL (1.7-4.1); Glucose 106 mg/dL (80-110); HEMOLYSIS < 15 (0-50); Potassium 4.6 mmol/L (3.4-5.1); Sodium 134 mmol/L (137-145); Total Protein 7.2 g/dL (6.3-8.2)
[2024-01-22 09:24] LABS: Troponin I < 0.012 ng/mL (0.01-0.034)
--- NOTE | 2024-01-22 12:34 | DI.MRI.S_ITS ---
PROCEDURE: MR HEAD/BRAIN WO CON INDICATIONS: Vertebral artery occlusion TECHNIQUE: Non-contrast axial T1 spin echo, axial T2 fast spin echo, sagittal and axial FLAIR, coronal T2 fast spin echo, axial gradient echo, axial diffusion and ADC through the brain. COMPARISON: [facility], CT, CT ANGIO HEAD AND NECK, 01/22/2024, 9:36. FINDINGS: Image quality: Excellent. CSF spaces: Ventricles appear symmetric in size and shape. Basal cisterns are patent. No extra-axial fluid collections. Brain: No intracranial bleeds or mass effects. There is cerebral volume loss for age. There are periventricular and deep white matter chronic small vessel ischemic changes. Brainstem appears normal. Diffusion-weighted images show no acute infarct. No chronic ischemic insults. Normal intravascular flow voids are present. Skull and face: Calvarial bone marrow is normal in signal. Orbits are normal. Sinuses: Sinuses and mastoids are clear. IMPRESSION: 1. No acute intracranial process. 2. Moderate atrophy and chronic microvascular ischemic changes. Dictated by: Brittney Goddard M.D. on 01/22/2024 at 15:14 Approved by: Brittney Goddard M.D. on 01/22/2024 at 15:16
--- NOTE | 2024-01-22 14:38 | PC.NURSE ---
Patient has had increasing auras and visual changes with his migraines, patient denies any neuro symptoms at this time.
== END 2024-01-22 16:00 | disposition home or self-care (01) ==
PROVIDERS: Emergency Provider Student in an Organized Health Care Education/Training Program; Family Provider Family Medicine; PCP Family Medicine
DX: G43.009 Migraine without aura, not intractable, without status migrainosus (principal); I65.09 Occlusion and stenosis of unspecified vertebral artery; R42 Dizziness and giddiness; Z79.899 Other long term (current) drug therapy
CPT/HCPCS: 36415; 70450; 70496; 70498; 70551; 80053; 81003; 82962; 84484; 85025; 85610; 93005; 99283; 99284; Q9967

== ENCOUNTER → 2024-07-31 07:37 | Outpatient (CLI) | payer MEDICARE, OTHER, SELFPAY ==
[2024-07-31 09:06] LABS: Alanine Aminotransferase 24 IU/L (<50); Albumin 4.4 g/dL (3.5-5.0); Albumin Globulin Ratio 1.8 (1.0-2.8); Alkaline Phosphatase 59 U/L (38-126); Aspartate Aminotransferase 41 IU/L (17-59); BUN Creatinine Ratio 21.9 (6-22); Bilirubin Total 1.6 mg/dL (0.2-1.3); Blood Urea Nitrogen 23 mg/dL (9-20); Calcium 9.8 mg/dL (8.4-10.2); Carbon Dioxide 25 mmol/L (22-32); Chloride 103 mmol/L (98-107); Estimated Glomerular Filt Rate > 60 mL/min (>60); Globulin 2.5 g/dL (1.7-4.1); Glucose 84 mg/dL (70-99); HEMOLYSIS < 15 (0-50); Magnesium 1.7 mg/dL (1.6-2.3); Potassium 4.9 mmol/L (3.4-5.1); Sodium 135 mmol/L (137-145); Total Protein 6.9 g/dL (6.3-8.2)
== END ==
PROVIDERS: Family Provider Family Medicine; PCP Family Medicine; Referring Provider Specialist; Visit Provider Specialist
DX: I10 Essential (primary) hypertension (principal); E78.5 Hyperlipidemia, unspecified
CPT/HCPCS: 36415; 80053; 80061; 83704; 83735

== ENCOUNTER → 2024-09-13 08:10 | Outpatient (CLI) | payer MEDICARE, OTHER, SELFPAY ==
[2024-09-13 10:06] LABS: Prostate Specific Antigen < 0.064 ng/mL (0.10-4.00)
[2024-09-13 11:23] LABS: Testosterone 499 ng/dL (71.8-623)
== END ==
LOC: LAB 08:11
PROVIDERS: Family Provider Family Medicine; PCP Family Medicine; Referring Provider Urology; Visit Provider Urology
DX: C61 Malignant neoplasm of prostate (principal)
CPT/HCPCS: 36415; 84153; 84403